=== PATIENT | male | born 1965 | race Two or more races ===

== ENCOUNTER 2019-12-18 16:57 | Emergency (ER) | payer SELFPAY ==
[~2019-12-18] VITALS: Ht 165.1 cm; Wt 72.0 kg
[2019-12-18] MEDS ORDERED: IPRATROPIUM BROMIDE (0.02%) 0.5MG/2.5ML NEB HHN STA (17:36)
[2019-12-18] MEDS ORDERED: ALBUTEROL (0.083%) 2.5MG/3ML NEB HHN STA (17:36)
[2019-12-18] MEDS ORDERED: IBUPROFEN 600MG TABLET PO STA (18:13)
[2019-12-18 19:07] LABS: *AMPHETAMINES SCREEN URINE NEGATIVE (NEGATIVE); *BARBITURATES SCREEN URINE NEGATIVE (NEGATIVE); *BENZODIAZEPINES SCREEN URINE NEGATIVE (NEGATIVE)
[2019-12-18 19:08] LABS: *COCAINE SCREEN URINE NEGATIVE (NEGATIVE); CANNABINOID URINE SCREEN PRESUMTIVE POSITIVE (NEGATIVE); METHADONE URINE SCREEN NEGATIVE (NEGATIVE); OPIATES URINE SCREEN PRESUMTIVE POSITIVE (NEGATIVE); PHENCYCLIDINE URINE SCREEN NEGATIVE (NEGATIVE)
[2019-12-18 19:23] LABS: CHLORIDE 107 mEq/L (98-107)
[2019-12-18 19:25] LABS: BASOPHILS % 1.2 % (0.0-2.0); EOSINOPHILS % 5.6 % (0.0-5.0); HEMATOCRIT. 50.6 % (42.0-52.0); HEMOGLOBIN. 16.6 g/dL (14.0-18.0); LYMPHOCYTES % 30.3 % (20.0-50.0); MEAN CORPUSCULAR VOLUME 94.4 fL (80.0-94.0); MEAN PLATELET VOLUME 8.1 fl (7.4-10.4); MONOCYTES % 5.5 % (2.0-8.0); NEUTROPHILS % 57.4 % (40.0-76.0); PLATELET 129 x1000/uL (130-400); RED BLOOD CELL COUNT 5.36 mill/uL (4.7-6.1); RED CELL DISTRIBUTION WIDTH 15.2 % (11.6-14.6)
[2019-12-18 19:27] LABS: ETHANOL BLOOD 247 mg/dL
[2019-12-18 20:30] VITALS: BP 127/91
[2019-12-18] MEDS ORDERED: ACETAMINOPHEN 325MG TABLET PO STA (21:43)
== END 2019-12-18 22:36 | disposition home or self-care (01) ==
LOC: ER 16:57
DX: T51.0X1A Toxic effect of ethanol, accidental (unintentional), initial encounter (principal); M25.552 Pain in left hip; J06.9 Acute upper respiratory infection, unspecified; J44.9 Chronic obstructive pulmonary disease, unspecified; M79.10 Myalgia, unspecified site; F12.10 Cannabis abuse, uncomplicated; F11.10 Opioid abuse, uncomplicated; Y92.89 Other specified places as the place of occurrence of the external cause
CPT/HCPCS: 36415; 71045; 73502; 80048; 80305; 80307; 80320; 80329; 85025; 87804; 99284; G0480

== ENCOUNTER 2020-12-19 18:13 | Emergency (ER) | payer MEDICAID, OTHER ==
[~2020-12-19] VITALS: Ht 165.1 cm; Wt 75.0 kg
[2020-12-19 18:21] VITALS: BP 136/90
[2020-12-19] MEDS ORDERED: CEFTRIAXONE SODIUM 1 G/VIAL IM ONE (19:00)
[2020-12-19] MEDS ORDERED: LIDOCAINE HCL 1% 20ML VIAL (Pyxis) INJ INFIL ONE (19:00)
[2020-12-19] MEDS ORDERED: IBUPROFEN 400MG TABLET PO ONE (19:00)
[2020-12-19 19:23] LABS: BASOPHILS % 1.1 % (0.0-2.0); EOSINOPHILS % 3.7 % (0.0-5.0); HEMOGLOBIN. 14.9 g/dL (14.0-18.0); LYMPHOCYTES % 31.5 % (20.0-50.0); MEAN CORPUSCULAR HEMOGLOBIN 28.6 pg (28.0-32.0); MEAN CORPUSCULAR VOLUME 86.5 fL (80.0-94.0); MEAN PLATELET VOLUME 8.1 fl (7.4-10.4); MONOCYTES % 8.1 % (2.0-8.0); NEUTROPHILS % 55.6 % (40.0-76.0); PLATELET 189 x1000/uL (130-400); RED BLOOD CELL COUNT 5.21 mill/uL (4.7-6.1); RED CELL DISTRIBUTION WIDTH 15.7 % (11.6-14.6)
[2020-12-19 19:31] LABS: CHLORIDE 107 mEq/L (98-107)
[2020-12-19] MEDS ORDERED: IBUP-2028 MT (19:36)
[2020-12-19] MEDS ORDERED: SULF1TAB48 MT (19:36)
[2020-12-19] MEDS ORDERED: CEPH500C2 MT (19:36)
== END 2020-12-19 20:49 | disposition home or self-care (01) ==
LOC: ER 18:13
DX: L03.316 Cellulitis of umbilicus (principal); F17.200 Nicotine dependence, unspecified, uncomplicated; F12.10 Cannabis abuse, uncomplicated; F11.10 Opioid abuse, uncomplicated; E11.9 Type 2 diabetes mellitus without complications; M79.606 Pain in leg, unspecified; J44.1 Chronic obstructive pulmonary disease with (acute) exacerbation; I10 Essential (primary) hypertension; J45.909 Unspecified asthma, uncomplicated
CPT/HCPCS: 36415; 80053; 85025; 96372; 99283; J0696; J3490